=== PATIENT | female | born 1980 | race Two or more races ===

== ENCOUNTER 2020-11-10 20:21 | Emergency (ER) | payer SELFPAY ==
[~2020-11-10] VITALS: Ht 177.8 cm; Wt 97.5 kg
[2020-11-11 01:14] VITALS: BP 133/71
== END 2020-11-11 02:56 | disposition left against medical advice (07) ==
LOC: ER 20:21
DX: M25.562 Pain in left knee (principal); Z53.21 Procedure and treatment not carried out due to patient leaving prior to being seen by health care provider
CPT/HCPCS: 72170; 73562